=== PATIENT | male | born 1950 | race Caucasian/White ===

== ENCOUNTER 2017-06-02 16:04 | Emergency (ER) | payer MEDICARE, SELFPAY ==
[2017-06-02 16:04] VITALS: BP 138/73; PULSE 77; RESP 18; TEMP 36.7; O2SAT 99; BMI 25.8
[2017-06-02 16:05] VITALS: BMI 25.8
--- NOTE | 2017-06-02 16:10 | XR_ITS ---
XR chest 2V HISTORY: ITS.REASON: chest pain/mid upper abd pain ORDERING PHYSICIAN: Juan José Collins MD PATIENT AGE: 67 years COMPARISON: None available FINDINGS: The cardiomediastinal silhouette and pulmonary vascularity are within normal limits. There are coronary artery calcifications The lungs are clear without infiltrates, suspicious nodules, or pleural effusions. No acute bony abnormalities. IMPRESSION: Coronary artery disease, otherwise negative with no acute finding
--- NOTE | 2017-06-02 16:11 | CT_ITS ---
CT abdomen pelvis w con CLINICAL INDICATION: Epigastric pain with nausea and vomiting ITS.REASON: abd pain ORDERING PHYSICIAN: Juan José Collins MD PATIENT AGE: 67 years COMPARISON: 05/07/2015 TECHNIQUE: Axial images obtained with sagittal and coronal reformats. PROCEDURE: Oral Contrast: None IV Contrast: 75 mL's of Isovue-370. FINDINGS: There are dependent changes in the lung bases. Coronary artery calcifications and stents noted. Small hiatal hernia. The liver, spleen, adrenal glands, and pancreas have an unremarkable appearance. Layering hyperdensity is present within the gallbladder consistent with stones and/or sludge Unremarkable kidneys and ureters. No intestinal obstruction or free air. There is diverticulosis of the sigmoid colon. No evidence of appendicitis. Prostate is enlarged measuring 6.7 x 5.9 cm Degenerative changes are present within the lumbar spine and hips. IMPRESSION: 1. Cholelithiasis and/or gallbladder sludge 2. Enlarged prostate. 3. Other nonacute findings as described above
[2017-06-02 16:22] LABS: Basophils # 0.1 K/mm3 (0-0.2); Basophils % 1.1 % (0.1-2.0); Eosinophils # 0.4 K/mm3 (0.0-0.4); Eosinophils % 3.8 % (0.1-12.0); Hematocrit 49.1 % (42.0-52.0); Lymphocytes # 3.4 K/mm3 (0.7-4.5); Lymphocytes % 32.7 K/mm3 (10-50); Mean Corpuscular HGB Conc 34.6 g/dL (31.8-35.4); Mean Corpuscular Hemoglobin 31.9 pg (27.0-31.2); Mean Corpuscular Volume 92.4 fl (80-94); Mean Platelet Volume 7.3 fl (7.4-10.4); Monocytes # 0.6 K/mm3 (0.1-1.0); Monocytes % 5.6 % (1.7-9.3); Neutrophils # 5.9 K/mm3 (1.8-7.8); Neutrophils % 56.8 % (37.0-80.0); Platelet Count 335 K/mm3 (142-424); Red Blood Count 5.31 M/mm3 (4.60-6.20); Red Cell Distribution Width 13.1 % (11.5-17.5); White Blood Count 10.4 K/mm3 (4.8-10.8)
[2017-06-02 16:49] LABS: Alanine Aminotransferase 24 U/L (12-78); Albumin Level 3.9 gm/dL (3.4-5.0); Alkaline Phosphatase 67 U/L (46-116); Anion Gap 14.4 mEq/L (5-15); Bilirubin,Total 0.4 mg/dL (0.2-1.0); Blood Urea Nitrogen 9 mg/dL (7-18); Calcium 9.1 mg/dL (8.5-10.1); Carbon Dioxide 26 mmol/L (21.0-32.0); Chloride 105 mmol/L (98-107); Creatine Kinase 51 U/L (39-308); Creatinine Clearance Estimated 78 mL/min (0-300); Creatinine,Serum 0.85 mg/dL (0.70-1.30); Estimated Glomerular Filt Rate 90 ml/min (>60); GFR (African American) 109 ML/MIN (>60); Glucose 114 mg/dL (74-106); Sodium 142 mmol/L (136-145); Total Protein,Serum 7.9 gm/dL (6.4-8.2); Troponin I < 0.02 ng/ml (0.00-0.06)
[2017-06-02 17:16] LABS: Creatine Kinase MB < 0.5 mg/ml (0.0-3.6)
[2017-06-02 17:17] LABS: Aspartate Amino Transferase 16 U/L (15-37)
[2017-06-02 17:18] LABS: Potassium 3.4 mmoL/L (3.5-5.1)
--- NOTE | 2017-06-02 18:18 | HMH.EDGENADL ---
ED Disposition Clinical Impression: Biliary colic Cholelithiasis Qualifiers: Cholelithiasis location: gallbladder Cholecystitis presence: without cholecystitis Biliary obstruction: without biliary obstruction Qualified Code(s): K80.20 - Calculus of gallbladder without cholecystitis without obstruction Disposition: Home, Self-Care Condition on Discharge: Good Instructions: Fat-Restricted Diet, DI for Gallstones Additional Instructions: Additional instructions for ABDOMINAL PAIN: See your physician as soon as possible for further evaluation. Return immediately if worsening abdominal pain, vomiting, shortness of breath, fever, vomiting of blood or abdominal distention. Additional instructions for CONTROLLED SUBSTANCES: You have been prescribed a medication that is a controlled substance. Controlled substances include pain medications known as opiates and sedative nerve medications known as benzodiazepines. Some common opiates include: Codeine (such as Tylenol #3) Hydrocodone (Vicodin, Lortab, Lorcet, [place]) Oxycodone (Percocet, Percodan, Oxycodone, Oxy IR) Some common benzodiazepines include: Diazepam (Valium) Lorazepam (Ativan) Alprazolam (Xanax) Clonazepam (Klonopin) Oxazepam (Serax) All of these controlled substances are highly addictive and frequently abused. Misuse can and frequently does lead to addiction as well as overdose and . Medication should be stored in a locked cabinet or other secure storage unit. Do not store the medication in a motor vehicle. Short term supplies, 3 days or less, are prescribed because of the highly addictive nature of the medication. Any of the controlled substance medication NOT taken should be disposed of properly and NOT SAVED. The recommended method of disposing of unused medications is: Place the medicines in a sealable plastic bag. If the medicine is a solid, crush it or add water to dissolve it. Add something undesirable (cat litter, coffee grounds, etc.) Dispose of sealed bag in household trash Do not flush or pour unused medicines down a sink or drain. Controlled substances should not be shared, given away or sold. Because of the addictive nature and frequent abuse, these medications are sometimes stolen. These medications should be kept in a safe place where they cannot be stolen. Do not keep them in your car or purse. Lost or stolen prescriptions for controlled substances WILL NOT BE REFILLED in this emergency department, regardless of whether a police report was filed. Prescriptions: Tramadol HCl [Ultram] 50 mg PO Q6HP PRN #6 tab PRN Reason: Moderate Pain Ondansetron [Zofran 4mg ODT] 4 mg PO TIDP PRN #6 tab.rapdis PRN Reason: Nausea And Vomiting Referrals: Jim Bar MD [Primary Care Provider] - - Critical Care Critical Care Time: No Attestation: On 06/02/17, the high probability of a clinically significant, sudden or life threatening deterioration of the following system(s) required my full and direct attention, intervention and personal management. The time I documented below is in addition to time spent performing reported procedures but includes the following listed in this critical care notation. Medical Decision Making - Louis Inquiry Pt receiving controlled substance: Yes Louis was queried for this patient: Yes Reference #:: [id number] Risks and benefits of using a controlled substance: were discussed with pt by me Comment: 3 rxs. last rx 10 percocet 10/27/16. Vital Signs: 06/02/17 16:04 Temperature 98.1 F Temperature Source Oral Pulse Rate [Right Brachial] 77 Respiratory Rate 18 Blood Pressure [Right Arm] 138/73 Blood Pressure Mean [Right Arm] 94 Blood Pressure Source [Right Arm] Automatic Cuff Blood Pressure Position [Right Arm] Sitting 02 Sat by Pulse Oximetry 99 Oxygen Delivery Method Room Air - Lab Data Lab Results 06/02/17 16:15: WBC 10.4, RBC 5.31, Hgb 17.0, Hct 49.1, MCV 92.4, MCH 31.9 H, MCHC 34.6,
--- NOTE | 2017-06-02 18:21 | ED_ITS ---
ED Disposition Clinical Impression: Biliary colic Cholelithiasis Qualifiers: Cholelithiasis location: gallbladder Cholecystitis presence: without cholecystitis Biliary obstruction: without biliary obstruction Qualified Code(s) : K80.20 - Calculus of gallbladder without cholecystitis without obstruction Disposition: Home, Self-Care Condition on Discharge: Good Instructions: Fat-Restricted Diet, DI for Gallstones Additional Instructions: Additional instructions for ABDOMINAL PAIN: See your physician as soon as possible for further evaluation. Return immediately if worsening abdominal pain, vomiting, shortness of breath, fever, vomiting of blood or abdominal distention. Additional instructions for CONTROLLED SUBSTANCES: You have been prescribed a medication that is a controlled substance. Controlled substances include pain medications known as opiates and sedative nerve medications known as benzodiazepines. Some common opiates include: Codeine (such as Tylenol #3) Hydrocodone (Vicodin, Lortab, Lorcet, [place]) Oxycodone (Percocet, Percodan, Oxycodone, Oxy IR) Some common benzodiazepines include: Diazepam (Valium) Lorazepam (Ativan) Alprazolam (Xanax) Clonazepam (Klonopin) Oxazepam (Serax) All of these controlled substances are highly addictive and frequently abused. Misuse can and frequently does lead to addiction as well as overdose and . Medication should be stored in a locked cabinet or other secure storage unit. Do not store the medication in a motor vehicle. Short term supplies, 3 days or less, are prescribed because of the highly addictive nature of the medication. Any of the controlled substance medication NOT taken should be disposed of properly and NOT SAVED. The recommended method of disposing of unused medications is: Place the medicines in a sealable plastic bag. If the medicine is a solid, crush it or add water to dissolve it. Add something undesirable (cat litter, coffee grounds, etc.) Dispose of sealed bag in household trash Do not flush or pour unused medicines down a sink or drain. Controlled substances should not be shared, given away or sold. Because of the addictive nature and frequent abuse, these medications are sometimes stolen. These medications should be kept in a safe place where they cannot be stolen. Do not keep them in your car or purse. Lost or stolen prescriptions for controlled substances WILL NOT BE REFILLED in this emergency department, regardless of whether a police report was filed. Prescriptions: Tramadol HCl [Ultram] 50 mg PO Q6HP PRN #6 tab PRN Reason: Moderate Pain Ondansetron [Zofran 4mg ODT] 4 mg PO TIDP PRN #6 tab.rapdis PRN Reason: Nausea And Vomiting Referrals: Jim Bar MD [Primary Care Provider] - - Critical Care Critical Care Time: No Attestation: On 06/02/17, the high probability of a clinically significant, sudden or life threatening deterioration of the following system(s) required my full and direct attention, intervention and personal management. The time I documented below is in addition to time spent performing reported procedures but includes the following listed in this critical care notation. Medical Decision Making - Louis Inquiry Pt receiving controlled substance: Yes Louis was queried for this patient: Yes Reference #:: [id number] Risks and benefits of using a controlled substance: were discussed with pt by me Comment: 3 rxs. last rx 10 percocet 10/27/16. Vital Signs: 06/02/17 16:04 Temperature 98.1 F Temperature
[2017-06-02 18:51] LABS: Lipase 108 u/L (73-393)
[2017-06-02 19:00] VITALS: BP 148/80; PULSE 69; RESP 20; TEMP 36.5
== END 2017-06-02 19:02 | disposition home or self-care (01) ==
PROVIDERS: Emergency Provider Emergency Medicine; Family Provider Family Medicine; PCP Family Medicine
DX: K80.20 Calculus of gallbladder without cholecystitis without obstruction (principal); K80.50 Calculus of bile duct without cholangitis or cholecystitis without obstruction; F17.210 Nicotine dependence, cigarettes, uncomplicated; Z88.6 Allergy status to analgesic agent; Z88.8 Allergy status to other drugs, medicaments and biological substances
CPT/HCPCS: 71046; 74177; 80053; 82550; 82553; 83690; 84484; 85025; 93005; 99283; Q9967

== ENCOUNTER → 2017-07-23 11:25 | Outpatient (CLI) | payer MEDICARE, SELFPAY ==
[2017-07-23 12:15] LABS: Basophils # 0.1 K/mm3 (0-0.2); Basophils % 1.2 % (0.1-2.0); Eosinophils # 0.3 K/mm3 (0.0-0.4); Eosinophils % 3.7 % (0.1-12.0); Hematocrit 46.9 % (42.0-52.0); Hemoglobin 16.1 g/dL (14.1-18.0); Lymphocytes # 2.2 K/mm3 (0.7-4.5); Lymphocytes % 24.8 K/mm3 (10-50); Mean Corpuscular HGB Conc 34.4 g/dL (31.8-35.4); Mean Corpuscular Hemoglobin 31.5 pg (27.0-31.2); Mean Corpuscular Volume 91.7 fl (80-94); Mean Platelet Volume 7.5 fl (7.4-10.4); Monocytes # 0.5 K/mm3 (0.1-1.0); Monocytes % 5.9 % (1.7-9.3); Neutrophils # 5.7 K/mm3 (1.8-7.8); Neutrophils % 64.4 % (37.0-80.0); Platelet Count 302 K/mm3 (142-424); Red Blood Count 5.12 M/mm3 (4.60-6.20); Red Cell Distribution Width 12.9 % (11.5-17.5); White Blood Count 8.8 K/mm3 (4.8-10.8)
[2017-07-23 12:35] LABS: INR 0.95 (0.9-1.1); Prothrombin Time 10.3 seconds (9.4-11.8)
[2017-07-23 13:55] LABS: Alanine Aminotransferase 21 U/L (12-78); Albumin/Globulin Ratio 1.1 (1.1-1.8); Alkaline Phosphatase 73 U/L (46-116); Aspartate Amino Transferase 18 U/L (15-37); Bilirubin,Total 0.7 mg/dL (0.2-1.0); Blood Urea Nitrogen 8 mg/dL (7-18); Calcium 9.9 mg/dL (8.5-10.1); Carbon Dioxide 26 mmol/L (21.0-32.0); Chloride 105 mmol/L (98-107); Creatinine,Serum 0.65 mg/dL (0.70-1.30); Estimated Glomerular Filt Rate 123 ml/min (>60); GFR (African American) 148 ML/MIN (>60); Globulin 3.6 gm/dl (1.3-3.2); Glucose 95 mg/dL (74-106); Sodium 142 mmol/L (136-145); Total Protein,Serum 7.6 gm/dL (6.4-8.2)
== END ==
PROVIDERS: Visit Provider Surgery
DX: Z01.818 Encounter for other preprocedural examination (principal); K80.80 Other cholelithiasis without obstruction; K80.50 Calculus of bile duct without cholangitis or cholecystitis without obstruction; K80.20 Calculus of gallbladder without cholecystitis without obstruction
CPT/HCPCS: 36415; 80053; 85025; 85610

== ENCOUNTER → 2018-01-03 12:58 | Outpatient (CLI) | payer MEDICARE, SELFPAY ==
--- NOTE | 2018-01-03 13:52 | CT_ITS ---
CT lung screening EXAM: CT LUNG LOW DOSE WO CONTRAST HISTORY: Current smoker with 30 pack-year smoking history, asymptomatic for lung cancer ITS.REASON: CURRENT TOBACCO USE ORDERING PHYSICIAN: Jim Bar MD PATIENT AGE: 67 years COMPARISON: None TECHNIQUE: The exam was performed on a GE Light Speed [address] scanner using 2.90 mGy CTDI. A low dose helical CT CHEST was performed on a multi-detector scanner. All CT scans at the facility use one or more dose reduction, viz: automated exposure control, ma/kV adjustment per patient size (including targeted exams where dose is matched to indication, i.e. head), or iterative reconstruction technique. The LDCT was performed in a facility that meets the criteria for the screening program. Data regarding this exam was submitted to ACR which is an approved registry. The order for this exam indicates that it came as a result of a lung cancer screening counseling shard decision-making visit that included all the elements required of such a visit including smoking cessation. The radiologist interpreting this exam meets the CMS criteria for the LDCT lung cancer screening program. The exam is reported using the Lung-RADS classification scale and reported to the ACR registry. NOTE: This study was performed for the specific purposes of lung cancer screening and is not an alternative to diagnostic chest CT. RADIATION DOSE: CTDI vol(CT dose Index-volume) = 2.90mG DLP (Dose Length Product) = 89.60 mGcm FINDINGS: There is hyperinflation with attenuation of the peripheral pulmonary vessels consistent with obstructive chronic bronchitis. There is mild central bronchial thickening. There is a 9 x 6 mm nodular opacity in the right middle lobe medially and inferiorly. There is some hyperdensity on the axial images on the lateral aspect of this nodule however this could be due to artifact. Calcification not identified on the reformatted images. While this could be due to an area of fibrosis, a developing nodule is also a consideration. [address] follow-up recommended Patchy groundglass density is present in the left upper lobe centrally nonspecific. Scattered small nodes present in the mediastinum some which are calcified. There is coronary artery calcification and aortic valve calcification. There is a small hiatal hernia. IMPRESSION: 1. Lung RADS Category: 4, mildly suspicious measuring 9 x 6 mm in the right middle lobe 2. Other findings: COPD, coronary artery calcification, old granulomatous disease RECOMMENDATIONS: Chest CT without with contrast in 3 months
[2018-01-03 14:00] VITALS: PULSE 104; PULSE 110
== END ==
PROVIDERS: PCP Family Medicine; Visit Provider Family Medicine
DX: Z12.2 Encounter for screening for malignant neoplasm of respiratory organs (principal); Z87.891 Personal history of nicotine dependence; R06.09 Other forms of dyspnea
CPT/HCPCS: 94060; 94640

== ENCOUNTER → 2018-04-27 13:26 | Outpatient (CLI) | payer MEDICARE, SELFPAY ==
[2018-04-27 14:43] LABS: Blood Urea Nitrogen 7 mg/dL (7-18); Creatinine,Serum 0.78 mg/dL (0.70-1.30); Estimated Glomerular Filt Rate 99 ml/min (>60); GFR (African American) 120 ML/MIN (>60)
== END ==
PROVIDERS: Visit Provider Family Medicine
DX: R91.1 Solitary pulmonary nodule (principal)
CPT/HCPCS: 36415; 82565; 84520

== ENCOUNTER → 2018-04-29 13:46 | Outpatient (CLI) | payer MEDICARE, SELFPAY ==
--- NOTE | 2018-04-29 13:53 | CT_ITS ---
CT chest wo/w con HISTORY: Follow-up lung nodule ITS.REASON: LUNG NODULE ORDERING PHYSICIAN: Jim Bar MD PATIENT AGE: 67 years COMPARISON: 01/03/2018 Technique: Axial images obtained without and with contrast. 75 mL Optiray 350 utilized. Sagittal and coronal reformats. All CT scans at the facility use one or more dose reduction, viz: automated exposure control, ma/kV adjustment per patient size (including targeted exams where dose is matched to indication, i.e. head), or iterative reconstruction technique. FINDINGS: There are a few small mediastinal lymph nodes. Coronary artery calcifications and/or stents noted. No evidence of aortic aneurysm or dissection. There are some mild aortic valvular calcifications. No pericardial effusion or central pulmonary embolus. There is a small hiatal hernia. There is a parenchymal opacity once again noted in the right middle lobe measuring approximately 9 x 8 mm. This is not significantly changed. No abnormal enhancement. There are mild centrilobular emphysematous changes. No new nodules or additional nodules are evident. Upper abdominal images are unremarkable aside from a small hiatal hernia. No acute bony anomalies evident. IMPRESSION: 1. Overall no significant change in the right middle lobe nodule. Suggest 6 month follow-up. 2. Hiatal hernia. 3. Centrilobular emphysema. 4. Coronary artery disease
== END ==
PROVIDERS: PCP Family Medicine; Visit Provider Family Medicine
DX: R91.1 Solitary pulmonary nodule (principal)
CPT/HCPCS: 71270

== ENCOUNTER 2020-11-07 08:14 | Inpatient (IN) | payer MEDICARE, SELFPAY ==
[2020-11-07] VITALS (18 sets, daily range): BP systolic 127–209; BP diastolic 74–116; PULSE 64–120; RESP 13–30; TEMP 36.4–36.8; O2SAT 85–98; BMI 27.3; BMI 26.6
--- NOTE | 2020-11-07 | IR_ITS ---
APPROVED REPORT Patient Location: Inpatient Chief Technology Officer: VERA Damon RT (R) PROCEDURES 1. Left heart catheterization 2. Selective coronary arteriography 3. Left ventriculography INDICATION 1. Non-Q wave myocardial infarction, 2. Coronary artery disease SCAI INDICATION Patient is a 70-year-old white male who presented with a non-Q wave myocardial infarction. Apparently 20 years ago he had cardiac catheterization where he was told he had coronary disease. Specifics are unknown. Presented with chest pain and abdominal pain. In the non-Q wave myocardial infarction range. Secondary to this referred for left heart catheterization Informed consent was obtained prior to the procedure. COMPLICATIONS NONE Estimated Blood Loss: LESS THAN 10 ML TECHNIQUE One percent lidocaine was used to anesthetize the right groin. The right femoral artery was accessed via the Seldinger technique. A 4-Brazilian sheath was placed in the right femoral artery. The JL-4 and JR-4 catheter was also used to perform left heart catheterization left ventriculogram and selective coronary angiogram. At the end of the procedure the patient was transferred to the post-op holding area in stable condition for arterial sheath removal. ANGIOGRAPHIC RESULTS The left main artery Angiographically normal The left anterior descending artery Had a complex 99.9% ostial stenosis. There was haziness at that level. There was then a complex 80% mid stenosis at the takeoff of a large septal security compliance specialist. Patient then had subtotal mid occlusion. This was prior to the takeoff of a diagonal branch and the true left anterior descending. VAMSI II flow into the distal left anterior descending. First diagonal branch was moderate in size with diffuse 20 to 30% proximal stenosis. There is also moderate calcification of the proximal left anterior descending The circumflex artery Moderate in size. Smooth 40% proximal stenosis The right coronary artery Large and dominant. Moderate calcification throughout the proximal and mid vessel. 100% proximal occlusion. Distal right coronary artery being fed via left to right collaterals The [place] ventriculogram reveals Mild reduction in left ventricular systolic function with an ejection fraction of 40 to 45%. There was moderate hypokinesis of the apical and apical anterior wall The left ventricular end-diastolic pressure 24 IMPRESSION 1. Severe two-vessel [place] coronary artery disease with critical stenosis noted throughout the left anterior descending and 100% occlusion of the large dominant right coronary artery in its midportion 2. Moderate diffuse coronary calcification 3. Distal right coronary artery being fed via left to right collaterals from the left coronary system 4. Mild reduction in left ventricular systolic function with wall motion abnormalities 5. Elevated left ventricular end-diastolic pressure 6. Successful placement of an Angio-Seal device in the right common femoral artery PLAN 1. Patient needs coronary artery bypass grafting. The ostial lesion in the left anterior descending is severe and any manipulation of that could encroach on the left circumflex which is the only artery that does not have severe disease. That circumflex also helps to collateralized the right coronary artery. The leak of enzymes is likely from the left anterior descending as well. He benefited from bypassing of the first diagonal branch as well as the distal left anterior descending and large right coronary artery. Lasix 80 mg x 1 now. Aggressive risk factor modification. We will arrange transfer for surgery. Family has been notified Electronically signed by : Rajendra Brown MD
--- NOTE | 2020-11-07 08:14 | ECG_ITS ---
APPROVED REPORT Exam: Resting ECG HR:78 bpm ECG Measurements Heart Rate 78 AXES VT 154 P 52 QRSd 110 QRS 27 QT 400 T 25 QTc 456 Conclusion Sinus rhythm with occasional premature ventricular complexes Possible Left atrial enlargement Anterior infarct, age undetermined Abnormal ECG Electronically signed by : Jim Gore MD 11/08/2020 12:05:44
--- NOTE | 2020-11-07 08:25 | XR_ITS ---
PROCEDURE: XR CHEST PORTABLE CLINICAL HISTORY: epigastric pain COMPARISON: CR CXR2 CHEST-AP VIEW ONLY from 05/07/2015 CR CXR2V XR chest 2V from 06/02/[address] chest wo/w con from 04/29/2018 CR XR CHEST 2V from 12/16/2018 FINDINGS: Borderline cardiomegaly without failure. Increased markings right lung base which in part may be due to overlying vasculature. Cannot exclude atelectatic change. There is a questionable nodule in the right lower lobe at 9 mm. Upright PA and lateral chest may provide further evaluation when patient can tolerate. No acute bony abnormalities. IMPRESSION: Increased markings right lung base which could be due to overlying vasculature. Cannot exclude patchy area of atelectasis or infiltrate with a possible 9 mm nodule Dictated by: Ravinder Mclaughlin MD 11/07/2020 08:58 Ravinder Mclaughlin MD in [facility] 11/07/2020 08:58
[2020-11-07 08:35] LABS: Basophils # 0.1 K/mm3 (0-0.2); Eosinophils # 0.2 K/mm3 (0.0-0.4); Eosinophils % 1.8 % (0.1-12.0); Hematocrit 47.2 % (42.0-52.0); Lymphocytes # 1.6 K/mm3 (0.7-4.5); Lymphocytes % 14.5 % (10-50); Mean Corpuscular HGB Conc 36.1 g/dL (31.8-35.4); Mean Corpuscular Hemoglobin 34.5 pg (27.0-31.2); Mean Corpuscular Volume 95.7 fl (80-94); Mean Platelet Volume 8.1 fl (7.4-10.4); Monocytes # 0.6 K/mm3 (0.1-1.0); Monocytes % 5.6 % (1.7-9.3); Neutrophils # 8.5 K/mm3 (1.8-7.8); Neutrophils % 77.1 % (37.0-80.0); Platelet Count 254 K/mm3 (142-424); Red Blood Count 4.93 M/mm3 (4.60-6.20); Red Cell Distribution Width 13.9 % (11.5-17.5)
[2020-11-07 08:36] LABS: Chloride 105 mmol/L (98-107); Potassium 3.6 mmoL/L (3.5-5.1); Sodium 140 mmol/L (136-145)
[2020-11-07 08:39] LABS: Alanine Aminotransferase 23 U/L (12-78); Alkaline Phosphatase 76 U/L (38-126); Anion Gap 11.6 mEq/L (5-15); Aspartate Amino Transferase 42 U/L (17-59); Bilirubin,Direct 0.4 mg/dl (0.0-0.4); Bilirubin,Indirect 1.1 mg/dL (0.0-0.9); Bilirubin,Total 1.5 mg/dl (0.2-1.3); Bilirubin,Unconjugated 1.1 mg/dL (0.0-1.1); Blood Urea Nitrogen 3 mg/dl (9-20); Calcium 9.4 mg/dl (8.4-10.2); Carbon Dioxide 27 mmol/L (22.0-30.0); Creatinine Clearance Estimated 79 mL/min (50-200); Estimated Glomerular Filt Rate 111 ml/min (>60); GFR (African American) 135 ML/MIN (>60); Glucose 124 mg/dl (74-100); Lipase 29 U/L (23-300)
[2020-11-07 08:40] LABS: Albumin Level 4.4 g/dl (3.5-5.0); Total Protein,Serum 7.8 g/dl (6.3-8.2)
[2020-11-07 08:53] LABS: Troponin I 1.57 ng/ml (0.00-0.034)
--- NOTE | 2020-11-07 08:53 | HMH.EDGENADL ---
ED Disposition Clinical Impression: Non-STEMI (non-ST elevated myocardial infarction), Diverticulitis Disposition: Admitted As Inpatient Condition on Discharge: Serious - Critical Care Critical Care Time: No Attestation: On 11/07/20, the high probability of a clinically significant, sudden or life threatening deterioration of the following system(s) required my full and direct attention, intervention and personal management. The time I documented below is in addition to time spent performing reported procedures but includes the following listed in this critical care notation. Medical Decision Making - Louis Inquiry Pt receiving controlled substance: Yes Louis was queried for this patient: No Reason not queried -: Emergent pt cond-no time Risks and benefits of using a controlled substance: were not discussed with pt by me Vital Signs: 11/07/20 08:17 11/07/20 09:00 11/07/20 09:30 Temperature 97.7 F Temperature Source Oral Pulse Rate 80 78 Pulse Rate [Right Radial] 77 Respiratory Rate 18 19 21 Blood Pressure 130/81 136/80 Blood Pressure [Left Arm] Blood Pressure [Right Arm] 137/78 Blood Pressure Mean 105 Blood Pressure Mean [Left Arm] Blood Pressure Mean [Right Arm] 97 Blood Pressure Source [Left Arm] Blood Pressure Source [Right Arm] Automatic Cuff Blood Pressure Position [Left Arm] Blood Pressure Position [Right Arm] Sitting 02 Sat by Pulse Oximetry 95 96 92 L Oxygen Delivery Method Room Air Room Air Oxygen Delivery Method [Bilateral Throughout] Oxygen Flow Rate (LPM) Oxygen Flow Rate (LPM) [Bilateral Throughout] 11/07/20 10:00 11/07/20 10:30 11/07/20 11:15 Temperature Temperature Source Pulse Rate 77 75 64 Pulse Rate [Right Radial] Respiratory Rate 24 19 24 Blood Pressure 132/79 127/93 H 137/74 Blood Pressure [Left Arm] Blood Pressure [Right Arm] Blood Pressure Mean Blood Pressure Mean [Left Arm] Blood Pressure Mean [Right Arm] Blood Pressure Source [Left Arm] Blood Pressure Source [Right Arm] Blood Pressure Position [Left Arm] Blood Pressure Position [Right Arm] 02 Sat by Pulse Oximetry 97 94 L 97 Oxygen Delivery Method Oxygen Delivery Method [Bilateral Throughout] Oxygen Flow Rate (LPM) Oxygen Flow Rate (LPM) [Bilateral Throughout] 11/07/20 11:31 11/07/20 11:38 Temperature 98.2 F Temperature Source Temporal Artery Scan Pulse Rate 69 Pulse Rate [Right Radial] 78 Respiratory Rate 21 18 Blood Pressure 128/82 Blood Pressure [Left Arm] 157/95 H Blood Pressure [Right Arm] Blood Pressure Mean Blood Pressure Mean [Left Arm] 115 Blood Pressure Mean [Right Arm] Blood Pressure Source [Left Arm] Automatic Cuff Blood Pressure Source [Right Arm] Blood Pressure Position [Left Arm] Sitting Blood Pressure Position [Right Arm] 02 Sat by Pulse Oximetry 98 Oxygen Delivery Method Simple Mask Oxygen Delivery Method [Bilateral Throughout] Simple Mask Oxygen Flow Rate (LPM) 6 Oxygen Flow Rate (LPM) [Bilateral Throughout] 6 - Lab Data Lab Results 11/07/20 08:21: WBC 11.0 H, RBC 4.93, Hgb 17.0, Hct 47.2, MCV 95.7 H, MCH 34.5 H, MCHC 36.1 H, RDW 13.9, Plt Count 254, MPV 8.1, Neut % (Auto) 77.1, Lymph % (Auto) 14.5, [place] % (Auto) 5.6, Eos % (Auto) 1.8, Baso % (Auto) 1.0, Neut # (Auto) 8.5 H, Lymph # (Auto) 1.6, [place] # (Auto) 0.6, Eos # (Auto) 0.2, Baso # (Auto) 0.1 11/07/20 08:21: Sodium 140, Potassium 3.6, Chloride 105, Carbon Dioxide 27, Anion Gap 11.6, BUN 3 L, Creatinine 0.70, Estimated Creat Clear 79, Estimated GFR 111, Est GFR ( Amer) 135, Glucose 124 H, Calcium 9.4, Total Bilirubin 1.5 H, Direct Bilirubin 0.4, Conjugated Bilirubin 0.0, Indirect Bilirubin 1.1 H, Unconjugated Bilirubin 1.1, AST 42, ALT 23, Alkaline Phosphatase 76, Troponin I 1.57 H, Total Protein 7.8, Albumin 4.4, Lipase 29 11/07/20 09:35: SARS-CoV-2 (PCR) Not detected, Influenza A Untype (PCR) Not detected, Influenza Type B
--- NOTE | 2020-11-07 08:54 | PC.NURSE ---
notified ER of critical troponin 1.57 taj in lab called critical value, name and verified
--- NOTE | 2020-11-07 08:57 | PC.NURSE ---
EDDY HAMMER at
--- NOTE | 2020-11-07 09:01 | PC.NURSE ---
EDDY HAMMER consulting with Dr. Campos at this time
--- NOTE | 2020-11-07 09:05 | PC.NURSE ---
after speaking with Dr. Campos, EDDY HAMMER states Dr. Brown is going to do a heart cath on pt later today.
--- NOTE | 2020-11-07 09:12 | PC.NURSE ---
notified keely castro in cardiology per ER request
[2020-11-07 09:45] LABS: Coronavirus 19, PCR Not Detected (NotDetected); Influenza A, PCR Not Detected (NotDetected); Influenza B, PCR Not Detected (NotDetected)
--- NOTE | 2020-11-07 09:55 | PC.NURSE ---
speaking with Dr Bar at this time.
--- NOTE | 2020-11-07 09:58 | CT_ITS ---
PROCEDURE: CT ABDOMEN PELVIS WO CON CLINICAL INDICATION: abdominal pain and distension COMPARISON: CT CT ABDOMEN PELVIS WO CON from 12/16/2018 TECHNIQUE: Axial images obtained with sagittal and coronal reformats. All CT scans at the facility use one or more dose reduction, viz: automated exposure control, ma/kV adjustment per patient size (including targeted exams where dose is matched to indication, i.e. head), or iterative reconstruction technique. FINDINGS: LOWER THORAX: Mild cardiomegaly. Coronary artery calcification and/or stents. Bibasilar atelectatic changes with trace right effusion. Small area of ground-glass opacity right middle lobe on the very 1st image nonspecific. ABDOMEN & PELVIS: Prior cholecystectomy. The liver, spleen, and pancreas have an unremarkable appearance. Left adrenal gland is slightly enlarged but maintains an adrenal form shape and is unchanged. No renal or ureteral calculi or hydronephrosis. There is mild thickening of the stomach. This could be due to nondistention having a similar appearance on the previous exam. There is a small hiatal hernia. No evidence of appendicitis. There are few air-fluid levels within nondistended large and small bowel. There are scattered colonic diverticula. There is mild stranding of the fat in the left lower quadrant posterior to the sigmoid colon. There is no thickening of the sigmoid colon at this area. This could be related to a prior area of inflammation. Cannot exclude the possibility of mild diverticulitis at this region. No abscess or perforation apparent. The prostate is enlarged at 6.4 cm. There is mild thickening of the urinary bladder wall similar to the previous exam. There are degenerative changes in the lumbar spine and hips. There is minimal fusiform dilatation of the infrarenal portion of the abdominal aorta at 2.3 cm not significantly changed. IMPRESSION: 1. Minimal stranding of the fat in the left lower quadrant which could be due to prior area of inflammation or a subtle area of diverticulitis. Colonic diverticulosis is noted. No abscess or perforation. 2. Bibasilar atelectasis with trace right effusion and minimal ground-glass attenuation in the right middle lobe. 3. Enlarged prostate. There is urinary bladder wall thickening which could be related to chronic bladder outlet obstruction Dictated by: Ravinder Mclaughlin MD 11/07/2020 10:29 Ravinder Mclaughlin MD in [place] 11/07/2020 10:29
--- NOTE | 2020-11-07 10:04 | HMH.CNCARD ---
History of Present Illness Consult date: 11/07/20 Requesting physician: Juan José Collins Consult reason: chest pain Chief complaint: Non-Stemi History of present illness: 70-year-old male presented to ED with mid to lower abdominal pain. Patient states abdominal pain started a few days ago and has become worse throughout this morning. Abdomen is noted as distended and firm. Patient denies nausea, vomiting or diarrhea. Patient did complain of epigastric pain that also started a few days ago. Patient does have history of coronary artery disease. Patient states over 20 years ago he did have an TN and underwent heart catheterization at that time. Patient states he is required no coronary stents but did say there were blockages in the back of his heart. Labs obtained in the ED revealed first troponin elevated at 1.57. EKG has revealed sinus rhythm with occasional PVC with a heart rate 70 bpm. Blood pressure is stable. Patient states history of hypertension. History of hyperlipidemia the patient is unable to take statins due to intolerance due to myalgias. Patient refuses to take medications for his LDL. Patient does have history of hiatal hernia. Patient has had pancreatitis in the past. Patient does consume alcohol preferably whiskey at least 1 pint a day. Patient states he has been drinking since his left him 30 years ago. Patient does use tobacco. Patient states he smokes at least 2 packs/day. Patient did undergo Lexiscan Myoview in 2017 which revealed inferior wall scar with no ischemia. Last echocardiogram was in 2017 which revealed normal LV size and function. EF greater than 55% with moderate MR, moderate AR with aortic root at upper limits of normal. Patient did have cardiac cath approximately in 1996 with ASHD with auto bypass. 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 Chest xray:IMPRESSION: Increased markings right lung base which could be due to overlying vasculature. Cannot exclude patchy area of atelectasis or infiltrate with a possible 9 mm nodule Discussed plan of care with Dr. Brown. Orders were received from Dr. Brown. Patient will be set up for a left heart catheterization with right groin access due to non-STEMI. Discussed with patient the risk and benefits of undergoing left heart catheterization with right groin access with patient. Patient verbalized understanding and is agreeable to procedure. Will obtain echocardiogram to assess LV function and valve status. Due to patient's mid to lower abdominal pain and distention, ER physician is obtaining CT scan of the abdomen. Patient was given Brilinta and aspirin in the ED per ED physician. Pending on the results of the echocardiogram and left heart catheterization, medication treatment and therapies may be recommended. Will defer abdominal pain to PCP. Advised patient to stop smoking. Patient verbalized understanding. Advised patient to stop or decrease alcohol consumption. Patient verbalized understanding. Thank you for allowing cardiology to participate in the care of this patient. [facility] History I have reviewed the patient's past medical history: Yes Medical History: Reports:: Anxiety, Cancer, Coronary Artery Disease, Depression, Gastroesophageal Reflux Disease(GERD), Hypertension Denies:: Diabetes Mellitus Type 1, Diabetes Mellitus Type 2, Internal Pacemaker, MRSA, Seizures *Have you ever received a pneumonia vaccine?: No *Have you received a flu vaccine this season?: No Other Medical History: Denies: Blood Transfusion Reaction Other Surgeries: Yes: No Previous Surgery, Cholecystectomy, Skin Cancer Excision. No: Pacemaker Amputation: No Fractures: Yes - *Social History Smoking Status: Current every day smoker Tobacco Type: cigarettes # Packs/Day (cigarettes): 1 Alcohol Intake: former Alcohol Intake Frequency:: other Substance Use Type: denies use *Occupational Status:: retired Housing: house *Travel in the last 8 we
--- NOTE | 2020-11-07 10:12 | PC.NURSE ---
pt to CT
--- NOTE | 2020-11-07 10:41 | CA_ITS ---
APPROVED REPORT EXAM: Comprehensive 2D, Doppler, and color-flow Echocardiogram Head Housekeeper: Mariah Galindo RT(R) Ht: 5 ft 8 in Wt: 180lbs BSA: 1.95 BP: 136/80 mmHg Indications: NON STEMI, CP, smoker, HTN, hyperlipidemia, CAD, hx NV, abdominal pain, SOB, etoh abuse Echo Enhancing Agent Indication: Endocardial border delineation Agent(s) / Amount(s) Used: Definity 2 cc 2D Dimensions LVOT 2.10 cm (M/F) 1.5-2.5 LA Volume 33.40 mL LA Volume Index 17.12 mL/m2 (M/F) 16-34 M-Mode Dimensions RVDd 2.65 cm (0.9-2.6) LA Diam 3.81 cm (1.9-4.0) LVDd 5.37 cm (3.5-5.7) Ao Diam 3.01 cm (2.0-3.7) LVDs 4.57 cm (3.5-5.7) IVSd 0.98 cm (0.6-1.1) PWd 0.57 cm (0.6-1.1) EF (Teich) 31.30% FS 14.90% EDV (Teich) 139.50 mL ESV (Teich) 95.90 mL LV Diastology E Decel Time 103.00 (160-240 msec) E/A Ratio 1.6 MED E' 4.40 (< 7 cm/sec) E'/MED E' Ratio 19.91 (>14) LAT E' 4.60 (<10 cm/sec) E/LAT E' Ratio 19.04 (>14) Mitral Valve MV E Max Carlos. 88.00 (40-130 cm/s) MV A Velocity 55.00 (40-130 cm/s) E/A Ratio 1.59 MV Decel. Time 103.00 (160-240 ms) MV PHT 30.00 ms Left Ventricle Clinically difficult study because of the patient factors and poor acoustic windows, Definity contrast was utilized to delineate the endocardial surfaces. Left atrium is mildly enlarged, left ventricle is mildly dilated, severe reduced left ventricular systolic function, visually estimated ejection fraction 30%, there is marked hypokinesis involving mid to distal septum, anterior, anterior apical and anterolateral wall, there is no left ventricular thrombus seen. Grade 1 diastolic dysfunction seen with tissue Doppler evidence of raise left atrial pressure. Doppler evidence of low cardiac output is also seen. Right Ventricle Right atrium and right ventricle are normal size and contractility. Aortic Valve Aortic valve is thickened and calcified without Doppler evidence of aortic stenosis or aortic insufficiency. Mitral Valve Mitral inflow velocity is reduced, there is no mitral stenosis, there is mild mitral regurgitation. Tricuspid Valve Tricuspid grossly normal, there is mild tricuspid regurgitation, tricuspid rotation jet velocity is inadequate for calculation of the right ventricular systolic pressure. Pulmonic Valve Pulmonic valve is poorly visualized. Great Vessels Aortic root is normal size. Pericardium No significant pericardial effusion noted. Conclusion 1. Technically difficult study because of the patient factors and poor acoustic windows. Mildly dilated left ventricle, severely slow ventricular systolic function, visually estimated ejection fraction 30% with multiple segmental wall motion abnormalities described above, Definity contrast was utilized to delineate the endocardial surfaces, there is no left ventricular thrombus seen. Doppler evidence of raise left atrial pressure as well as low cardiac output state seen. 2. Mild mitral and tricuspid regurgitation. 4. No significant pericardial effusion noted. Electronically signed by : Reuben Escobar MD 11/07/2020 14:22:50
--- NOTE | 2020-11-07 11:15 | PC.NURSE ---
CV lab staff at
--- NOTE | 2020-11-07 11:33 | PC.NURSE ---
in room checking on pt, pt states feeling SOA. BP 128/82 HR 69 SaO2 95% on RA placed pt on 2L per NC, obtaining another ekg
--- NOTE | 2020-11-07 11:37 | ECG_ITS ---
APPROVED REPORT Exam: Resting ECG HR:69 bpm ECG Measurements Heart Rate 69 AXES SD 164 P 67 QRSd 116 QRS 79 QT 444 T 0 QTc 475 Conclusion Normal sinus rhythm Septal infarct, age undetermined Abnormal ECG Electronically signed by : Jim Gore MD 11/08/2020 12:05:11
[2020-11-07 13:02] LABS: Troponin I 1.55 ng/ml (0.00-0.034)
--- NOTE | 2020-11-07 15:20 | PC.NURSE ---
report called [facility] @ [facility]. Pt is going to [facility] 8th floor, room 135 ([phone]). Called [facility] ambulance and requested ACLS trasport. Notified them of Nitroglycerin and Heparin gtts. Was informed that RN does NOT need to ride with pt to [facility].
[2020-11-07 15:35] LABS: Microscopic, Urine URINE MICROSCOPIC (MICROSCOPIC)
[2020-11-07 15:38] LABS: Appearance,Urine SL CLOUDY (Clear); Bilirubin,Urine Negative (Negative); Blood, Urine 3+ (Negative); Color,Urine ORANGE (Yellow); Glucose,Urine (UA) Negative (Negative); Ketones,Urine Negative (Negative); Leukocyte Esterase,Urine Negative (Negative); Nitrate,Urine Negative (Negative); Protein,Urine Negative (Negative); Specific Gravity, Urine <= 1.005 (1.005-1.030); Urobilinogen,Urine 0.2 EU/dl (0.2)
[2020-11-07 15:49] LABS: WBC,Urine Occasional #/hpf (0-3)
[2020-11-07 15:50] LABS: Bacteria,Urine Trace /lpf; Renal Epithelial Cells,Urine Occasional #/lpf (0)
--- NOTE | 2020-11-08 07:17 | HMH.HPDC ---
General - General Admission date:: 11/07/20 Discharge date: 11/07/20 *Admission Date: 11/07/20 *Chief complaint: epigastric pain *History of present illness: 2-day history of constant epigastric pain, currently rated 6/10. No vomiting or diarrhea. No fever. Denies chest pain. Has chronic shortness of breath which is unchanged. No discomfort in arms or jaw. Prior history of a heart attack 20 years ago, no stents or surgery. He has nitroglycerin at home, not taken for this pain. He has seen Dr. Campos in the past. States he does not currently regularly see a protection analyst. He is a smoker. [facility] History I have reviewed the patient's past medical history: Yes Medical History: Reports:: Anxiety, Coronary Artery Disease, Depression, Gastroesophageal Reflux Disease(GERD), Hypertension Denies:: Cancer, Diabetes Mellitus Type 1, Diabetes Mellitus Type 2, Internal Pacemaker, MRSA, Seizures *Have you ever received a pneumonia vaccine?: No *Have you received a flu vaccine this season?: No Other Medical History: Denies: Blood Transfusion Reaction Other Surgeries: Yes: No Previous Surgery, Cholecystectomy, Skin Cancer Excision. No: Pacemaker Amputation: No Fractures: Yes - *Social History Last grade of school completed: Advanced degree Smoking Status: Current every day smoker Tobacco Type: cigarettes # Packs/Day (cigarettes): 1 Alcohol Intake: current Alcohol Intake Frequency:: 3 or more drinks per day Substance Use Type: denies use *Occupational Status:: retired Housing: house *Travel in the last 8 weeks: None - Psychiatric History Pschychiatric History:: Reports:: Anxiety, Depression Family Hx:: No significant family history Review of Systems - Review of Systems Review of systems:: unable to obtain - *Neurologic Reports weakness Exam Vital signs and Labs for Last 24 Hours: Temp Pulse Resp BP Pulse Ox 97.5 F L 120 H 30 H 158/112 H 94 L 11/07/20 15:13 11/07/20 15:13 11/07/20 15:13 11/07/20 15:13 11/07/20 15:13 Laboratory Results - last 24 hr 11/07/20 08:21: WBC 11.0 H, RBC 4.93, Hgb 17.0, Hct 47.2, MCV 95.7 H, MCH 34.5 H, MCHC 36.1 H, RDW 13.9, Plt Count 254, MPV 8.1, Neut % (Auto) 77.1, Lymph % (Auto) 14.5, [place] % (Auto) 5.6, Eos % (Auto) 1.8, Baso % (Auto) 1.0, Neut # (Auto) 8.5 H, Lymph # (Auto) 1.6, [place] # (Auto) 0.6, Eos # (Auto) 0.2, Baso # (Auto) 0.1 11/07/20 08:21: Sodium 140, Potassium 3.6, Chloride 105, Carbon Dioxide 27, Anion Gap 11.6, BUN 3 L, Creatinine 0.70, Estimated Creat Clear 79, Estimated GFR 111, Est GFR ( Amer) 135, Glucose 124 H, Calcium 9.4, Total Bilirubin 1.5 H, Direct Bilirubin 0.4, Conjugated Bilirubin 0.0, Indirect Bilirubin 1.1 H, Unconjugated Bilirubin 1.1, AST 42, ALT 23, Alkaline Phosphatase 76, Troponin I 1.57 H, Total Protein 7.8, Albumin 4.4, Lipase 29 11/07/20 09:35: SARS-CoV-2 (PCR) Not detected, Influenza A Untype (PCR) Not detected, Influenza Type B (PCR) Not detected 11/07/20 11:34: Troponin I 1.55 H 11/07/20 15:34: Urine Color [place], Urine Appearance Sl cloudy, Urine pH 5.0, Ur Specific [place] <= 1.005, Urine Protein Negative, Urine Glucose (UA) Negative, Urine Ketones Negative, Urine Blood 3+, Urine Nitrate Negative, Urine Bilirubin Negative, Urine Urobilinogen 0.2, Ur Leukocyte Esterase Negative, Urine RBC 10-20, Urine WBC Occasional, Ur Squamous Epith Cells None, Ur Renal Epithelial Cell Occasional, Urine Bacteria Trace I & O for Last 24 hours: Intake & Output 11/05/20 11/06/20 11/07/20 11/08/20 11:59 11:59 11:59 11:59 Weight 180 lb 175 lb 4 oz - Constitutional no acute distress - *Routine HEENT Exam Head: Present: normocephalic Eye: Present: EOMI, PERRL ENT: Present: mucous membranes moist - *Routine Neck Exam Present: supple. Absent: lymphadenopathy - *Routine Respiratory Exam Present: CTA bilaterally - *Routine Cardiovascular Exam Present: tachycardia - *Routine Abdominal Exam Present: soft, normoactive bowel sounds. Absent: t
== END 2020-11-07 16:15 | disposition short-term general hospital (02) | DRG 282 ==
LOC: ER 10:18 → 2ND 12:33
PROVIDERS: Internal Medicine Cardiovascular Disease; Admitting Provider Family Medicine; Emergency Provider Emergency Medicine; PCP Family Medicine; Visit Provider Family Medicine
PROC: 4A023N7 Measurement of Cardiac Sampling and Pressure, Left Heart, Percutaneous Approach (ICD-10-PCS; principal; 2020-11-07 12:00)
DX: I21.4 Non-ST elevation (NSTEMI) myocardial infarction (principal); I25.10 Atherosclerotic heart disease of native coronary artery without angina pectoris; I25.82 Chronic total occlusion of coronary artery; F17.210 Nicotine dependence, cigarettes, uncomplicated; I10 Essential (primary) hypertension; K21.9 Gastro-esophageal reflux disease without esophagitis; F41.9 Anxiety disorder, unspecified
CPT/HCPCS: 36415; 71045; 74176; 80048; 80076; 81001; 83690; 84484; 85025; 93005; 93306; 93458; 96365; 96375; 99152; 99285; C1725; C1760; C1769; J1644; J1956; J2405; Q9957; Q9967; U0003

== ENCOUNTER → 2020-11-14 09:11 | Outpatient (CLI) | payer MEDICARE, SELFPAY ==
[2020-11-14 09:43] LABS: Basophils # 0.1 K/mm3 (0-0.2); Basophils % 1.1 % (0.1-2.0); Eosinophils # 0.3 K/mm3 (0.0-0.4); Eosinophils % 2.9 % (0.1-12.0); Hemoglobin 15.5 g/dL (14.1-18.0); Lymphocytes # 1.6 K/mm3 (0.7-4.5); Lymphocytes % 16.5 % (10-50); Mean Corpuscular Hemoglobin 34.8 pg (27.0-31.2); Mean Corpuscular Volume 105.7 fl (80-94); Mean Platelet Volume 8.1 fl (7.4-10.4); Monocytes # 0.8 K/mm3 (0.1-1.0); Monocytes % 7.7 % (1.7-9.3); Neutrophils # 7.2 K/mm3 (1.8-7.8); Neutrophils % 71.9 % (37.0-80.0); Platelet Count 376 K/mm3 (142-424); Red Blood Count 4.45 M/mm3 (4.60-6.20); Red Cell Distribution Width 12.7 % (11.5-17.5)
[2020-11-14 10:30] LABS: Chloride 105 mmol/L (98-107); Sodium 140 mmol/L (136-145)
[2020-11-14 10:34] LABS: Blood Urea Nitrogen 9 mg/dl (9-20); Calcium 9.5 mg/dl (8.4-10.2); Carbon Dioxide 25 mmol/L (22.0-30.0); Estimated Glomerular Filt Rate 96 ml/min (>60); GFR (African American) 116 ML/MIN (>60); Glucose 116 mg/dl (74-100); Magnesium 1.5 mg/dl (1.6-2.3)
== END ==
PROVIDERS: Physician Assistant
DX: I21.4 Non-ST elevation (NSTEMI) myocardial infarction (principal)
CPT/HCPCS: 36415; 80048; 83735; 85025